=== PATIENT | female | born 1945 | race African-American/Black ===

== ENCOUNTER 2017-08-11 08:34 | Inpatient (IN) | payer OTHER ==
[2017-08-11] MEDS: cloNIDine HCL 0.1 MG TABLET PO (09:36)
[2017-08-11 09:54] LABS: ANION GAP 8 (6-14); BLOOD UREA NITROGEN 11 mg/dL (7-20); BUN/CREATININE RATIO 22 (6-20); CALCIUM 9.2 mg/dL (8.5-10.1); CARBON DIOXIDE 31 mmol/L (21-32); CHLORIDE 104 mmol/L (98-107); CREATININE 0.5 mg/dL (0.6-1.0); GLUCOSE 121 mg/dL (70-99); POTASSIUM 4.3 mmol/L (3.5-5.1); SODIUM 143 mmol/L (136-145)
[2017-08-11 09:58] LABS: ALBUMIN 3.3 g/dL (3.4-5.0); ALBUMIN/GLOBULIN RATIO 0.8 (1.0-1.7); ALK PHOS 84 U/L (46-116); ALT (SGPT) 16 U/L (14-59); AST (SGOT) 12 U/L (15-37); TOTAL BILIRUBIN 0.3 mg/dL (0.2-1.0); TOTAL PROTEIN 7.2 g/dL (6.4-8.2)
[2017-08-11 10:03] LABS: NT-PRO BNP 54 pg/mL (0-124)
[2017-08-11 10:06] LABS: TROPONINI < 0.017 ng/mL (0.000-0.055)
[2017-08-11 10:11] LABS: ADD MAN DIFF? NO
[2017-08-11] MEDS ORDERED: ONDANSETRON PF 4 MG/2 ML VIAL. IV (10:45)
[2017-08-11 10:58] LABS: BASO % 1 % (0-3); EOS % 1 % (0-3); HEMATOCRIT 47.8 % (36.0-47.0); HEMOGLOBIN 16.1 g/dL (12.0-15.5); LYMPH # 2.5 x10^3/uL (1.0-4.8); LYMPH % 44 % (24-48); MEAN CORPUSCULAR HEMOGLOBIN 31 pg (25-35); MEAN CORPUSCULAR HGB CONC 34 g/dL (31-37); MEAN CORPUSCULAR VOLUME 93 fL (79-100); MONO # 0.5 x10^3/uL (0.0-1.1); MONO % 9 % (0-9); NEUT # 2.6 x10^3uL (1.8-7.7); NEUT % 46 % (31-73); PLATELET COUNT 435 x10^3/uL (140-400); RED BLOOD COUNT 5.12 x10^6/uL (3.50-5.40); RED CELL DISTRIBUTION WIDTH 15.2 % (11.5-14.5); WHITE BLOOD COUNT 5.7 x10^3/uL (4.0-11.0)
[2017-08-11] MEDS: ASPIRIN CHEWABLE 81 MG TABLET. PO (11:06)
[2017-08-11] MEDS ORDERED: ACETAMINOPHEN 325 MG TABLET. PO (12:15)
[2017-08-11] MEDS: IPRATRPIUM/ALBUTEROL 0.5/2.5MG 3 ML NEBU. NEB ×3 (12:19→19:30)
[2017-08-11] MEDS: LOSARTAN POTASSIUM 50 MG TABLET. PO (15:00)
[2017-08-11] MEDS: hydroCHLOROthiazide 12.5 MG CAPSULE PO (15:00)
[2017-08-11] MEDS: amLODIPine BESYLATE 10 MG TABLET PO (15:00)
[2017-08-11 17:26] LABS: TROPONINI < 0.017 ng/mL (0.000-0.055)
[2017-08-11] MEDS: CARVEDILOL 12.5 MG TABLET. PO (21:39)
[2017-08-12] LABS: TROPONINI < 0.017 ng/mL (0.000-0.055)
[2017-08-12 05:15] LABS: ADD MAN DIFF? NO
[2017-08-12 05:30] LABS: BASO # 0.1 x10^3/uL (0.0-0.2); BASO % 1 % (0-3); EOS # 0.1 x10^3/uL (0.0-0.7); EOS % 1 % (0-3); HEMATOCRIT 44.2 % (36.0-47.0); HEMOGLOBIN 14.3 g/dL (12.0-15.5); LYMPH # 3.2 x10^3/uL (1.0-4.8); LYMPH % 48 % (24-48); MEAN CORPUSCULAR HEMOGLOBIN 31 pg (25-35); MEAN CORPUSCULAR HGB CONC 32 g/dL (31-37); MEAN CORPUSCULAR VOLUME 94 fL (79-100); MONO # 0.7 x10^3/uL (0.0-1.1); MONO % 10 % (0-9); NEUT # 2.7 x10^3uL (1.8-7.7); NEUT % 40 % (31-73); PLATELET COUNT 411 x10^3/uL (140-400); RED BLOOD COUNT 4.69 x10^6/uL (3.50-5.40); RED CELL DISTRIBUTION WIDTH 15.3 % (11.5-14.5); WHITE BLOOD COUNT 6.7 x10^3/uL (4.0-11.0)
[2017-08-12 05:57] LABS: CHOLESTEROL 126 mg/dL (0-200); HDLC 30 mg/dL (40-60); LDLC 69 mg/dL (0-100); NON-HDL CHOLESTEROL 96 mg/dL (0-129); TRIGLYCERIDES 135 mg/dL (0-150); VLDLC 27 mg/dL (0-40)
[2017-08-12 05:59] LABS: CHOLESTEROL/HDL RATIO 4.2
[2017-08-12 06:24] LABS: ALBUMIN/GLOBULIN RATIO 0.8 (1.0-1.7); ALK PHOS 71 U/L (46-116); ALT (SGPT) 16 U/L (14-59); ANION GAP 8 (6-14); AST (SGOT) 13 U/L (15-37); BLOOD UREA NITROGEN 13 mg/dL (7-20); BUN/CREATININE RATIO 19 (6-20); CALCIUM 8.8 mg/dL (8.5-10.1); CARBON DIOXIDE 33 mmol/L (21-32); CHLORIDE 104 mmol/L (98-107); CREATININE 0.7 mg/dL (0.6-1.0); GFR 100.1; GLUCOSE 54 mg/dL (70-99); POTASSIUM 4.1 mmol/L (3.5-5.1); SODIUM 145 mmol/L (136-145); TOTAL BILIRUBIN 0.3 mg/dL (0.2-1.0)
[2017-08-12 06:33] LABS: THYROID STIM HORMONE (TSH) 1.359 uIU/mL (0.358-3.74)
[2017-08-12] MEDS: IPRATRPIUM/ALBUTEROL 0.5/2.5MG 3 ML NEBU. NEB ×3 (08:05→14:57)
[2017-08-12] MEDS ORDERED: CARVEDILOL 12.5 MG TABLET. PO (09:00)
[2017-08-12] MEDS: LOSARTAN POTASSIUM 50 MG TABLET. PO (09:08)
[2017-08-12] MEDS: hydroCHLOROthiazide 12.5 MG CAPSULE PO (09:09)
[2017-08-12] MEDS: amLODIPine BESYLATE 10 MG TABLET PO (09:09)
[2017-08-12] MEDS: ASPIRIN ENTERIC COATED 81 MG TABLET.DR. PO (09:09)
[2017-08-12] MEDS: CARVEDILOL 12.5 MG TABLET. PO (09:10)
[2017-08-12] MEDS: PANTOPRAZOLE 40 MG TABLET.DR. PO (12:22)
[2017-08-12 20:11] LABS: HEMOGLOBIN A1C 6.2 % (4.8-5.6)
== END 2017-08-12 15:50 | disposition home or self-care (01) | DRG 191 ==
LOC: ER 08:34 → 5 SOUTH 10:00
DX: J44.0 Chronic obstructive pulmonary disease with (acute) lower respiratory infection (principal); I24.9 Acute ischemic heart disease, unspecified; F17.210 Nicotine dependence, cigarettes, uncomplicated; J20.8 Acute bronchitis due to other specified organisms; I12.9 Hypertensive chronic kidney disease with stage 1 through stage 4 chronic kidney disease, or unspecified chronic kidney disease; K21.9 Gastro-esophageal reflux disease without esophagitis; N18.2 Chronic kidney disease, stage 2 (mild); E66.9 Obesity, unspecified; F32.9 Major depressive disorder, single episode, unspecified; M19.90 Unspecified osteoarthritis, unspecified site; Z79.82 Long term (current) use of aspirin; Z81.8 Family history of other mental and behavioral disorders; Z82.0 Family history of epilepsy and other diseases of the nervous system; Z82.49 Family history of ischemic heart disease and other diseases of the circulatory system; Z86.73 Personal history of transient ischemic attack (TIA), and cerebral infarction without residual deficits; Z83.3 Family history of diabetes mellitus; Z90.710 Acquired absence of both cervix and uterus; Z68.32 Body mass index [BMI] 32.0-32.9, adult; Z87.01 Personal history of pneumonia (recurrent)
CPT/HCPCS: 36415; 71045; 80053; 80061; 83036; 83735; 83880; 84443; 84484; 85025; 93005; 93306; 94640; 99285; 99285-25; J7620

== ENCOUNTER 2020-02-15 16:13 | Inpatient (IN) | payer MEDICARE, OTHER ==
[~2020-02-15] VITALS: Ht 149.9 cm; Wt 72.8 kg
[~2020-02-15 16:13] MED LIST: ALBU2.5V8 INH; AMLO10TA8 PO; ASPI-886 PO; CARV25TA2 PO; DOXY-96 PO; LOSA1TAB25 PO; METF500T16 PO; OMEP40CA45 PO; PRED50TA PO
--- NOTE | 2020-02-15 16:31 | PHYS DOC ---
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 Patient reportedly had been cooking in the kitchen at the [facility] [employer] earlier today, when she started to feel dizzy, had slid herself down, reportedly hitting head on a chair on the way down. Patient reports that she felt little bit better after this, however still was feeling ill with a dizziness. EMS upon arrival found patient with blood sugar of 55, had administered some oral glucose, bring patient blood sugar up to 130's, . Also reports patient had one episode of emesis for them, had administered 4 mg of Zofran. Patient reports she does not have a history of diabetes, however reports that she was taking metformin up until approximately 1 month ago when she stopped taking it because she had not been reading about the side effects of it, reports she has not had any side effects herself, and she has not talked to her primary care, Dr. Lawton, about stopping this medication. Patient denies any pain at this time. (JAY LENNON APRN) Review of Systems: Review of Systems: Constitutional: Denies fever or chills. [] Eyes: Denies change in visual acuity. Does report she feels dizzy when her eyes are open [] HENT: Denies nasal congestion or sore throat. [] Respiratory: Denies cough or shortness of breath. [] Cardiovascular: Denies chest pain or edema. [] GI: Denies abdominal pain, bloody stools or diarrhea. Does report nausea, e pisode of vomiting with EMS, as well as on arrival to the ER. [] : Denies dysuria. [] Musculoskeletal: Denies back pain or joint pain. [] Integument: Denies rash. [] Neurologic: Denies headache, focal weakness does complain of dizziness, states that he just feels like it spinning [] Endocrine: Denies polyuria or polydipsia. [] Lymphatic: Denies swollen glands. [] Psychiatric: Denies depression or anxiety. [] (JAY LENNON APRN) Heart Score: Risk Factors: Risk Factors: DM, Current or recent (<one month) smoker, HTN, HLP, family history of CAD, obesity. Risk Scores: Score 0 - 3: 2.5% MACE over next 6 weeks - Discharge Home Score 4 - 6: 20.3% MACE over next 6 weeks - Admit for Clinical Observation Score 7 - 10: 72.7% MACE over next 6 weeks - Early Invasive Strategies (JAY LENNON APRN) Allergies: Allergies: Allergies Coded Allergies Type Severity Reaction Last Updated Verified No Known Drug Allergies 08/11/17 No (JAY LENNON APRN) Physical Exam: PE: Constitutional: Well developed, well nourished, no acute distress, diaphoretic appears mildly uncomfortable [] HENT: Normocephalic, atraumatic, bilateral external ears normal, oropharynx moist, no oral exudates, nose normal. [] Eyes: PERRLA, EOMI, conjunctiva normal, no discharge. Right beating nystagmus noted, no vertical nystagmus noted [] Neck: Normal range of motion, no tenderness, supple, no stridor. [] Cardiovascular:Heart rate regular rhythm, no murmur [] Lungs & Thorax: Bilateral breath sounds clear to auscultation [] Abdomen: Bowel sounds normal, soft, no tenderness, no masses, no pulsatile masses. [] Skin: diaphoretic nonerythematous, no rash noted h. [] Back: No tenderness, no CVA tenderness. [] Extremities: No tenderness, no cyanosis, no clubbing, ROM intact, no edema. [] Neurologic: Alert and oriented X 3, normal motor function, normal sensory function, no focal deficits noted. [] Psychologic: Affect normal, judgement normal, mood normal. [] (JAY LENNON APRN) EKG: EKG: [] (JAY LENNON APRN) Radiology/Procedures: Radiology/Procedures: Technical medicine pulmonary perfusion Scan: Clinical History: Reason: Elevated D Dimer Technique: 5.3 mCi of Tc 99m MAA was administered intravenously and spot views were obtained on the gamma camera for a Nuclear Medicine perfusion examination. Correlation: Same day chest x-ray. Findings: There is subtle decreased perfusion in the peripheral lungs bilaterally without a discrete wedge-shaped defect. This is indeterminate probability for pulmonary embolism based on the modified PIOPED criteria. Impression: Indeterminate probability for pulmonary embolism. Electronically signed by: Poornima Pollock III, MD (02/15/2020 9:35 PM) [facility] DICTATED and SIGNED BY: POORNIMA POLLOCK III, MD DATE: 02/15/202134 [] (JAY LENNON APRN) Course & Med Decision Making: Course & Med Decision Making Pertinent Labs and Imaging studies reviewed. (See chart for details) []Nursing staff unable to obtain IV access sufficient for CTA exam, will switch to perform VQ scan at this time. Discussed findings with patient, with recommendation for admission due to inconclusive PE study, with her syncope, and transient hypoglycemia. Patient agrees to admission at this time, will contact primary care Dr. Lawton. @[id number] Nelson, on-call for Dr. Lawton, agrees to admission. Recommends cardiology consult tomorrow. And admit to Dr. Lawton (JAY LENNON APRN) Dragon Disclaimer: Dragroxy Disclaimer: This electronic medical record was generated, in whole or in part, using a voice recognition dictation system. (JAY LENNON APRN) Departure Departure Impression: Primary Impression: Syncope Qualified Codes: R55 - Syncope and collapse Additional Impressions: Hypoglycemic reaction Elevated d-dimer Disposition: 09 ADMITTED INPATIENT Admitting Physician: Дмитрий Lawton (JAY LENNON APRN) Condition: STABLE Referrals: NO PCP (PCP) Justicifation of Admission Dx: Justifications for Admission: Justification of Admission Dx: N/A (JAY LENNON APRN) Attending Signature Attending Signature I have reviewed the PA/DEMOLITION CRANE OPERATOR's note and plan of care. I was available for consultation as needed during the patient's visit in the emergency department. I agree with the clinical impression, plan, and disposition. (ROMELIA JUDD DO) JAY LENNON APRN Feb 15, 2020 16:31 ROMELIA JUDD DO Feb 16, 2020 02:06
[2020-02-15 16:48] LABS: BASO # 0.1 x10^3/uL (0.0-0.2); BASO % 1 % (0-3); EOS # 0.1 x10^3/uL (0.0-0.7); EOS % 1 % (0-3); HEMATOCRIT 45.5 % (36.0-47.0); HEMOGLOBIN 15.9 g/dL (12.0-15.5); LYMPH # 3.5 x10^3/uL (1.0-4.8); LYMPH % 50 % (24-48); MEAN CORPUSCULAR HEMOGLOBIN 32 pg (25-35); MEAN CORPUSCULAR HGB CONC 35 g/dL (31-37); MEAN CORPUSCULAR VOLUME 92 fL (79-100); MONO # 0.5 x10^3/uL (0.0-1.1); MONO % 8 % (0-9); NEUT # 2.8 x10^3/uL (1.8-7.7); NEUT % 40 % (31-73); PLATELET COUNT 300 x10^3/uL (140-400); RED BLOOD COUNT 4.92 x10^6/uL (3.50-5.40); RED CELL DISTRIBUTION WIDTH 15.6 % (11.5-14.5); WHITE BLOOD COUNT 6.9 x10^3/uL (4.0-11.0)
[2020-02-15 16:57] LABS: PROTHROMBIN TIME PATIENT 12.1 SEC (11.7-14.0)
--- NOTE | 2020-02-15 16:57 | RAD ---
CHEST AP ONLY Clinical Indication: Reason: Altered mental status / Spl. Instructions: / History: Comparison: AP chest, January 18, 2018. Findings: Atherosclerotic and tortuous thoracic aorta. Cardiac size upper limits of normal. Lungs are clear. There is no pneumothorax. No pleural effusion is appreciated. No acute bone abnormality. IMPRESSION: No acute cardiopulmonary process. Electronically signed by: Luis Franz MD (02/15/2020 4:55 PM) [id number]
[2020-02-15] MEDS ORDERED: IV DEXTROSE 5% 500 ML IV ONE (17:00)
[2020-02-15] MEDS ORDERED: IV NORMAL SALINE 1000ML BAG 1,000 ML IV ONE (17:00)
[2020-02-15 17:02] LABS: CALCIUM 8.5 mg/dL (8.5-10.1); CREATININE 0.7 mg/dL (0.6-1.0); GFR 99.2; POTASSIUM 3.3 mmol/L (3.5-5.1)
[2020-02-15 17:04] LABS: BILIRUBIN,URINE NEGATIVE (NEG); CLARITY,URINE CLEAR; COLOR,URINE YELLOW; NITRITE,URINE NEGATIVE (NEG); PH,URINE 5.5 (<5.0-8.0); PROTEIN,URINE NEGATIVE (NEG-TRACE)
[2020-02-15 17:08] LABS: ALBUMIN 3.5 g/dL (3.4-5.0); MAGNESIUM 1.9 mg/dL (1.8-2.4); TOTAL BILIRUBIN 0.2 mg/dL (0.2-1.0); TOTAL PROTEIN 7.1 g/dL (6.4-8.2)
[2020-02-15 17:24] LABS: D-DIMER 0.99 ug/mlFEU (0.00-0.50)
[2020-02-15 17:26] LABS: BACTERIA,URINE MODERATE /HPF (0-FEW); RBC,URINE 0 /HPF (0-2); SQUAMOUS EPITHELIAL CELL,UR FEW /LPF
[2020-02-15 17:39] LABS: BARBITURATES NEG (NEG); BENZODIAZEPINES NEG (NEG); CANNABINOIDS NEG (NEG); COCAINE NEG (NEG); METHADONE NEG (NEG); OPIATES NEG (NEG); PHENCYCLIDINE NEG (NEG)
[2020-02-15 17:44] LABS: AMPHETAMINE/METHAMPHETAMINE NEG (NEG)
[2020-02-15] MEDS ORDERED: METOCLOPRAMIDE HCL 10 MG/2 ML VIAL. IVP ONE (17:45)
[2020-02-15] MEDS ORDERED: MECLIZINE HCL 12.5 MG TABLET. PO ONE (17:45)
--- NOTE | 2020-02-15 17:53 | RAD ---
Examination: CT HEAD WO CONTRAST History: Reason: Altered Mental status / Spl. Instructions: / History: Comparison/Correlation: None Findings: Axial images of the head were obtained without contrast. Ventricles are normal size. No intracranial hemorrhage, midline shift, or mass effect. Cavernous carotid calcifications present. Patchy opacification of ethmoid air cells in the left frontal sinus noted. Bony structures are unremarkable. Globes and optic nerves are unremarkable. Impression: No acute process. Electronically signed by: Victor Manuel Leavitt MD (02/15/2020 5:50 PM) [facility]
[2020-02-15] MEDS ORDERED: IV NORMAL SALINE 500ML BAG 500 ML IV ONE (18:30)
[2020-02-15] MEDS ORDERED: IOHEXOL 350 MG/ML 100 ML VIAL. IV ONE (18:30)
[2020-02-15] MEDS ORDERED: CONTRAST GIVEN. MC PRN (18:45)
--- NOTE | 2020-02-15 21:38 | RAD ---
Technical medicine pulmonary perfusion Scan: Clinical History: Reason: Elevated D Dimer Technique: 5.3 mCi of Tc 99m MAA was administered intravenously and spot views were obtained on the gamma camera for a Nuclear Medicine perfusion examination. Correlation: Same day chest x-ray. Findings: There is subtle decreased perfusion in the peripheral lungs bilaterally without a discrete wedge-shaped defect. This is indeterminate probability for pulmonary embolism based on the modified PIOPED criteria. Impression: Indeterminate probability for pulmonary embolism. Electronically signed by: Farhad Erazo III, MD (02/15/2020 9:35 PM) [facility]
[2020-02-15] MEDS ORDERED: ONDANSETRON PF 4 MG/2 ML VIAL. IV PRN (23:30)
[2020-02-16] VITALS (7 sets, daily range): BP systolic 108–173; BP diastolic 53–78
[2020-02-16] MEDS: IV NORMAL SALINE 1000ML BAG 1,000 ML IV SCH ×2 (01:25→09:30)
[2020-02-16 07:48] LABS: BASO % 1 % (0-3); EOS # 0.1 x10^3/uL (0.0-0.7); EOS % 1 % (0-3); HEMATOCRIT 43.4 % (36.0-47.0); HEMOGLOBIN 14.7 g/dL (12.0-15.5); LYMPH # 2.7 x10^3/uL (1.0-4.8); LYMPH % 45 % (24-48); MEAN CORPUSCULAR HEMOGLOBIN 32 pg (25-35); MEAN CORPUSCULAR HGB CONC 34 g/dL (31-37); MEAN CORPUSCULAR VOLUME 93 fL (79-100); MONO # 0.4 x10^3/uL (0.0-1.1); MONO % 7 % (0-9); NEUT # 2.8 x10^3/uL (1.8-7.7); NEUT % 46 % (31-73); PLATELET COUNT 221 x10^3/uL (140-400); RED BLOOD COUNT 4.65 x10^6/uL (3.50-5.40); RED CELL DISTRIBUTION WIDTH 15.6 % (11.5-14.5)
[2020-02-16 08:09] LABS: ALBUMIN/GLOBULIN RATIO 1.1 (1.0-1.7); CREATININE 0.5 mg/dL (0.6-1.0); GFR 146.3; POTASSIUM 3.5 mmol/L (3.5-5.1); TOTAL BILIRUBIN 0.3 mg/dL (0.2-1.0); TOTAL PROTEIN 5.8 g/dL (6.4-8.2)
[2020-02-16] MEDS ORDERED: ALBUTEROL SULFATE 2.5 MG/3 ML NEBU. INH PRN (09:45)
--- NOTE | 2020-02-16 09:47 | PDOC ---
Provider Note Provider Note Pt seen .H&P dictated.#[id number]. Justicifation of Admission Dx: Justifications for Admission: Justification of Admission Dx: N/A HETAL RODRIGUEZ MD Feb 16, 2020 09:47
[2020-02-16] MEDS ORDERED: POTASSIUM CHLORIDE 20 MEQ TABLET.ER. PO ONE (10:00)
[2020-02-16] MEDS ORDERED: hydroCHLOROthiazide 12.5 MG CAPSULE PO SCH (10:00)
[2020-02-16] MEDS ORDERED: amLODIPine BESYLATE 10 MG TABLET PO SCH (10:00)
[2020-02-16] MEDS ORDERED: ASPIRIN ENTERIC COATED 81 MG TABLET.DR. PO SCH (10:00)
[2020-02-16] MEDS ORDERED: LOSARTAN POTASSIUM 50 MG TABLET. PO SCH (10:00)
[2020-02-16] MEDS ORDERED: CARVEDILOL 12.5 MG TABLET. PO SCH (11:00)
--- NOTE | 2020-02-16 11:34 | PDOC2 ---
CONSULT Date of Consult Date of Consult DATE: 02/16/20 TIME: 11:28 Reason for Consult Reason for Consult: Syncope Referring Physician Referring Physician: Dr. Nelson Identification/Chief Complaint Chief Complaint Syncope Source Source: Chart review, Patient History of Present Illness Reason for Visit: 75-year-old female apparently was cooking at the kitchen of [employer] when she felt dizzy and passed out hitting her head on a chair. EMS apparently found the patient had blood sugar of 55 and normal blood pressure. She is presently feeling better and denied any dizziness. She denied any other episodes of syncope or near syncope in the past. She also denied any chest pain, orthopnea/PND or palpitations. Past Medical History Cardiovascular: HTN Pulmonary: Bronchitis, Pneumonia GI: GERD Heme/Onc: No pertinent hx Hepatobiliary: No pertinent hx Psych: Depression Musculoskeletal: Osteoarthritis Rheumatologic: No pertinent hx Infectious disease: No pertinent hx Renal/: No pertinent hx Endocrine: No pertinent hx Past Surgical History Past Surgical History: Hysterectomy Family History Family History: Alzheimer's Disease, Diabetes, Hypertension Social History ALCOHOL: none Drugs: None Lives: with Family Current Problem List Problem List Problems Medical Problems: (1) Elevated d-dimer Status: Acute (2) Hypoglycemic reaction Status: Acute (3) Syncope Status: Acute Current Medications Current Medications Current Medications Dextrose 500 ml @ 500 mls/hr 1X ONCE IV ; Start 02/15/20 at 17:00; Stop 02/15/20 at 18:19; Status DC Sodium Chloride 1,000 ml @ 1,000 mls/hr 1X ONCE IV Last administered on 02/15/20at 16:40; Start 02/15/20 at 17:00; Stop 02/15/20 at 17:59; Status DC Metoclopramide HCl (Reglan Vial) 10 mg 1X ONCE IVP Last administered on 02/15/20at 19:53; Start 02/15/20 at 17:45; Stop 02/15/20 at 17:46; Status DC Meclizine HCl (Antivert) 25 mg 1X ONCE PO Last administered on 02/15/20at 19:53; Start 02/15/20 at 17:45; Stop 02/15/20 at 17:46; Status DC Sodium Chloride 500 ml @ 500 mls/hr 1X ONCE IV Last administered on 02/15/20at 19:54; Start 02/15/20 at 18:30; Stop 02/15/20 at 19:29; Status DC Iohexol (Omnipaque 350 Mg/ml) 100 ml 1X ONCE IV ; Start 02/15/20 at 18:30; Stop 02/15/20 at 18:31; Status DC Info (CONTRAST GIVEN -- Rx MONITORING) 1 each PRN DAILY PRN MC SEE COMMENTS; Start 02/15/20 at 18:45; Stop 02/17/20 at 18:44 Ondansetron HCl (Zofran) 4 mg PRN Q8HRS PRN IV NAUSEA/VOMITING; Start 02/15/20 at 23:30; Stop 02/16/20 at 23:29 Sodium Chloride 1,000 ml @ 100 mls/hr Q10H IV Last administered on 02/16/20at 01:25; Start 02/15/20 at 23:30; Stop 02/16/20 at 23:29 Enoxaparin Sodium (Lovenox 80mg Syringe) 70 mg 1X ONCE SQ Last administered on 02/16/20at 01:24; Start 02/15/20 at 23:45; Stop 02/15/20 at 23:52; Status DC Albuterol Sulfate (Ventolin Neb Soln) 2.5 mg PRN Q6HRS PRN INH SHORTNESS OF BREATH; Start 02/16/20 at 09:45 Amlodipine Besylate (Norvasc) 10 mg DAILY PO ; Start 02/16/20 at 10:00 Aspirin (Ecotrin) 81 mg DAILYWBKFT PO ; Start 02/16/20 at 10:00 Metformin HCl (Glucophage) 500 mg BIDWMEALS PO ; Start 02/17/20 at 17:00 Carvedilol (Coreg) 25 mg BIDWMEALS PO ; Start 02/16/20 at 11:00 Losartan Potassium (Cozaar) 100 mg DAILY PO ; Start 02/16/20 at 10:00 Hydrochlorothiazide (Microzide) 12.5 mg DAILY PO ; Start 02/16/20 at 10:00 Potassium Chloride (Klor-Con) 40 meq 1X ONCE PO ; Start 02/16/20 at 10:00; Stop 02/16/20 at 10:01; Status DC Active Scripts Active Aspirin Ec (Aspirin) 81 Mg Tablet.dr 81 Mg PO DAILYWBKFT Proair Hfa Inhaler (Albuterol Sulfate) 8.5 Gm Hfa.aer.ad 2 Puff INH PRN Q6HRS PRN Reported Metformin Hcl 500 Mg Tablet 500 Mg PO BIDWMEALS Losartan-Hctz 100-12.5 Mg Tab (Losartan/Hydrochlorothiazide) 1 Each Tablet 1 Tab PO DAILY Amlodipine Besylate 10 Mg Tablet 10 Mg PO DAILY Carvedilol 25 Mg Tablet 1 Tab PO BID Allergies Allergies: Coded Allergies: No Known Drug Allergies (Unverified , 08/11/17) ROS PSYCHOLOGICAL ROS: No: Hallucinations Eyes: No Loss of vision HEENT: No: Epistaxis Respiratory: No: Hemoptysis, Shortness of breath Cardiovascular: No Chest Pain Gastrointestinal: Yes Vomiting Genitourinary: No Hematuria Neurological: No Seizures Skin: No Rash Physical Exam General: Alert, Oriented X3 HEENT: Atraumatic Lungs: Clear to auscultation Heart: Regular rate Abdomen: Soft Extremities: No edema Neuro: Normal speech Psych/Mental Status: Mood NL Vitals VITALS Vital Signs Date Time Temp Pulse Resp B/P (MAP) Pulse Ox O2 Delivery O2 Flow Rate FiO2 02/16/20 11:00 85 164/74 (104) 02/16/20 10:58 98.1 16 94 Room Air 98.1 Labs Labs Laboratory Tests Test 02/15/20 16:20 02/15/20 16:30 02/15/20 16:38 02/15/20 20:00 Glucose (Fingerstick) 137 mg/dL (70-99) White Blood Count 6.9 x10^3/uL (4.0-11.0) Red Blood Count 4.92 x10^6/uL (3.50-5.40) Hemoglobin 15.9 g/dL (12.0-15.5) Hematocrit 45.5 % (36.0-47.0) Mean Corpuscular Volume 92 fL (79-100) Mean Corpuscular Hemoglobin 32 pg (25-35) Mean Corpuscular Hemoglobin Concent 35 g/dL (31-37) Red Cell Distribution Width 15.6 % (11.5-14.5) Platelet Count 300 x10^3/uL (140-400) Neutrophils (%) (Auto) 40 % (31-73) Lymphocytes (%) (Auto) 50 % (24-48) Monocytes (%) (Auto) 8 % (0-9) Eosinophils (%) (Auto) 1 % (0-3) Basophils (%) (Auto) 1 % (0-3) Neutrophils # (Auto) 2.8 x10^3/uL (1.8-7.7) Lymphocytes # (Auto) 3.5 x10^3/uL (1.0-4.8) Monocytes # (Auto) 0.5 x10^3/uL (0.0-1.1) Eosinophils # (Auto) 0.1 x10^3/uL (0.0-0.7) Basophils # (Auto) 0.1 x10^3/uL (0.0-0.2) Prothrombin Time 12.1 SEC (11.7-14.0) Prothromb Time International Ratio 0.9 (0.8-1.1) D-Dimer (Gavi) 0.99 ug/mlFEU (0.00-0.50) Sodium Level 142 mmol/L (136-145) Potassium Level 3.3 mmol/L (3.5-5.1) Chloride Level 104 mmol/L (98-107) Carbon Dioxide Level 31 mmol/L (21-32) Anion Gap 7 (6-14) Blood Urea Nitrogen 15 mg/dL (7-20) Creatinine 0.7 mg/dL (0.6-1.0) Estimated GFR (Cockcroft-Gault) 99.2 BUN/Creatinine Ratio 21 (6-20) Glucose Level 143 mg/dL (70-99) Lactic Acid Level 1.2 mmol/L (0.4-2.0) Calcium Level 8.5 mg/dL (8.5-10.1) Magnesium Level 1.9 mg/dL (1.8-2.4) Total Bilirubin 0.2 mg/dL (0.2-1.0) Aspartate Amino Transf (AST/SGOT) 15 U/L (15-37) Alanine Aminotransferase (ALT/SGPT) 15 U/L (14-59) Alkaline Phosphatase 81 U/L (46-116) Troponin I Quantitative < 0.017 ng/mL (0.000-0.055) < 0.017 ng/mL (0.000-0.055) Total Protein 7.1 g/dL (6.4-8.2) Albumin 3.5 g/dL (3.4-5.0) Albumin/Globulin Ratio 1.0 (1.0-1.7) Thyroid Stimulating Hormone (TSH) 2.367 uIU/mL (0.358-3.74) Urine Collection Type U cath Urine Color Yellow Urine Clarity Clear Urine pH 5.5 (<5.0-8.0) Urine Specific [place] 1.025 (1.000-1.030) Urine Protein Negative mg/dL (NEG-TRACE) Urine Glucose (UA) Negative mg/dL (NEG) Urine Ketones (Stick) Negative mg/dL (NEG) Urine Blood Negative (NEG) Urine Nitrite Negative (NEG) Urine Bilirubin Negative (NEG) Urine Urobilinogen Dipstick 1.0 mg/dL (0.2 mg/dL) Urine Leukocyte Esterase Negative (NEG) Urine RBC 0 /HPF (0-2) Urine WBC 1-4 /HPF (0-4) Urine Squamous Epithelial Cells Few /LPF Urine Bacteria Moderate /HPF (0-FEW) Urine Mucus Mod /LPF Urine Opiates Screen Neg (NEG) Urine Methadone Screen Neg (NEG) Urine Barbiturates Neg (NEG) Urine Phencyclidine Screen Neg (NEG) Urine Amphetamine/Methamphetamine Neg (NEG) Urine Benzodiazepines Screen Neg (NEG) Urine Cocaine Screen Neg (NEG) Urine Cannabinoids Screen Neg (NEG) Urine Ethyl Alcohol Neg (NEG) Test 02/16/20 02:00 02/16/20 07:25 02/16/20 08:02 Troponin I Quantitative < 0.017 ng/mL (0.000-0.055) < 0.017 ng/mL (0.000-0.055) White Blood Count 6.0 x10^3/uL (4.0-11.0) Red Blood Count 4.65 x10^6/uL (3.50-5.40) Hemoglobin 14.7 g/dL (12.0-15.5) Hematocrit 43.4 % (36.0-47.0) Mean Corpuscular Volume 93 fL (79-100) Mean Corpuscular Hemoglobin 32 pg (25-35) Mean Corpuscular Hemoglobin Concent 34 g/dL (31-37) Red Cell Distribution Width 15.6 % (11.5-14.5) Platelet Count 221 x10^3/uL (140-400) Neutrophils (%) (Auto) 46 % (31-73) Lymphocytes (%) (Auto) 45 % (24-48) Monocytes (%) (Auto) 7 % (0-9) Eosinophils (%) (Auto) 1 % (0-3) Basophils (%) (Auto) 1 % (0-3) Neutrophils # (Auto) 2.8 x10^3/uL (1.8-7.7) Lymphocytes # (Auto) 2.7 x10^3/uL (1.0-4.8) Monocytes # (Auto) 0.4 x10^3/uL (0.0-1.1) Eosinophils # (Auto) 0.1 x10^3/uL (0.0-0.7) Basophils # (Auto) 0.0 x10^3/uL (0.0-0.2) Sodium Level 143 mmol/L (136-145) Potassium Level 3.5 mmol/L (3.5-5.1) Chloride Level 106 mmol/L (98-107) Carbon Dioxide Level 29 mmol/L (21-32) Anion Gap 8 (6-14) Blood Urea Nitrogen 7 mg/dL (7-20) Creatinine 0.5 mg/dL (0.6-1.0) Estimated GFR (Cockcroft-Gault) 146.3 BUN/Creatinine Ratio 14 (6-20) Glucose Level 100 mg/dL (70-99) Calcium Level 8.0 mg/dL (8.5-10.1) Total Bilirubin 0.3 mg/dL (0.2-1.0) Aspartate Amino Transf (AST/SGOT) 14 U/L (15-37) Alanine Aminotransferase (ALT/SGPT) 15 U/L (14-59) Alkaline Phosphatase 74 U/L (46-116) Total Protein 5.8 g/dL (6.4-8.2) Albumin 3.0 g/dL (3.4-5.0) Albumin/Globulin Ratio 1.1 (1.0-1.7) Glucose (Fingerstick) 107 mg/dL (70-99) Laboratory Tests Test 02/15/20 16:20 02/15/20 16:30 02/15/20 16:38 02/15/20 20:00 Glucose (Fingerstick) 137 mg/dL (70-99) White Blood Count 6.9 x10^3/uL (4.0-11.0) Red Blood Count 4.92 x10^6/uL (3.50-5.40) Hemoglobin 15.9 g/dL (12.0-15.5) Hematocrit 45.5 % (36.0-47.0) Mean Corpuscular Volume 92 fL (79-100) Mean Corpuscular Hemoglobin 32 pg (25-35) Mean Corpuscular Hemoglobin Concent 35 g/dL (31-37) Red Cell Distribution Width 15.6 % (11.5-14.5) Platelet Count 300 x10^3/uL (140-400) Neutrophils (%) (Auto) 40 % (31-73) Lymphocytes (%) (Auto) 50 % (24-48) Monocytes (%) (Auto) 8 % (0-9) Eosinophils (%) (Auto) 1 % (0-3) Basophils (%) (Auto) 1 % (0-3) Neutrophils # (Auto) 2.8 x10^3/uL (1.8-7.7) Lymphocytes # (Auto) 3.5 x10^3/uL (1.0-4.8) Monocytes # (Auto) 0.5 x10^3/uL (0.0-1.1) Eosinophils # (Auto) 0.1 x10^3/uL (0.0-0.7) Basophils # (Auto) 0.1 x10^3/uL (0.0-0.2) Prothrombin Time 12.1 SEC (11.7-14.0) Prothromb Time International Ratio 0.9 (0.8-1.1) D-Dimer (Gavi) 0.99 ug/mlFEU (0.00-0.50) Sodium Level 142 mmol/L (136-145) Potassium Level 3.3 mmol/L (3.5-5.1) Chloride Level 104 mmol/L (98-107) Carbon Dioxide Level 31 mmol/L (21-32) Anion Gap 7 (6-14) Blood Urea Nitrogen 15 mg/dL (7-20) Creatinine 0.7 mg/dL (0.6-1.0) Estimated GFR (Cockcroft-Gault) 99.2 BUN/Creatinine Ratio 21 (6-20) Glucose Level 143 mg/dL (70-99) Lactic Acid Level 1.2 mmol/L (0.4-2.0) Calcium Level 8.5 mg/dL (8.5-10.1) Magnesium Level 1.9 mg/dL (1.8-2.4) Total Bilirubin 0.2 mg/dL (0.2-1.0) Aspartate Amino Transf (AST/SGOT) 15 U/L (15-37) Alanine Aminotransferase (ALT/SGPT) 15 U/L (14-59) Alkaline Phosphatase 81 U/L (46-116) Troponin I Quantitative < 0.017 ng/mL (0.000-0.055) < 0.017 ng/mL (0.000-0.055) Total Protein 7.1 g/dL (6.4-8.2) Albumin 3.5 g/dL (3.4-5.0) Albumin/Globulin Ratio 1.0 (1.0-1.7) Thyroid Stimulating Hormone (TSH) 2.367 uIU/mL (0.358-3.74) Urine Collection Type U cath Urine Color Yellow Urine Clarity Clear Urine pH 5.5 (<5.0-8.0) Urine Specific [place] 1.025 (1.000-1.030) Urine Protein Negative mg/dL (NEG-TRACE) Urine Glucose (UA) Negative mg/dL (NEG) Urine Ketones (Stick) Negative mg/dL (NEG) Urine Blood Negative (NEG) Urine Nitrite Negative (NEG) Urine Bilirubin Negative (NEG) Urine Urobilinogen Dipstick 1.0 mg/dL (0.2 mg/dL) Urine Leukocyte Esterase Negative (NEG) Urine RBC 0 /HPF (0-2) Urine WBC 1-4 /HPF (0-4) Urine Squamous Epithelial Cells Few /LPF Urine Bacteria Moderate /HPF (0-FEW) Urine Mucus Mod /LPF Urine Opiates Screen Neg (NEG) Urine Methadone Screen Neg (NEG) Urine Barbiturates Neg (NEG) Urine Phencyclidine Screen Neg (NEG) Urine Amphetamine/Methamphetamine Neg (NEG) Urine Benzodiazepines Screen Neg (NEG) Urine Cocaine Screen Neg (NEG) Urine Cannabinoids Screen Neg (NEG) Urine Ethyl Alcohol Neg (NEG) Test 02/16/20 02:00 02/16/20 07:25 02/16/20 08:02 Troponin I Quantitative < 0.017 ng/mL (0.000-0.055) < 0.017 ng/mL (0.000-0.055) White Blood Count 6.0 x10^3/uL (4.0-11.0) Red Blood Count 4.65 x10^6/uL (3.50-5.40) Hemoglobin 14.7 g/dL (12.0-15.5) Hematocrit 43.4 % (36.0-47.0) Mean Corpuscular Volume 93 fL (79-100) Mean Corpuscular Hemoglobin 32 pg (25-35) Mean Corpuscular Hemoglobin Concent 34 g/dL (31-37) Red Cell Distribution Width 15.6 % (11.5-14.5) Platelet Count 221 x10^3/uL (140-400) Neutrophils (%) (Auto) 46 % (31-73) Lymphocytes (%) (Auto) 45 % (24-48) Monocytes (%) (Auto) 7 % (0-9) Eosinophils (%) (Auto) 1 % (0-3) Basophils (%) (Auto) 1 % (0-3) Neutrophils # (Auto) 2.8 x10^3/uL (1.8-7.7) Lymphocytes # (Auto) 2.7 x10^3/uL (1.0-4.8) Monocytes # (Auto) 0.4 x10^3/uL (0.0-1.1) Eosinophils # (Auto) 0.1 x10^3/uL (0.0-0.7) Basophils # (Auto) 0.0 x10^3/uL (0.0-0.2) Sodium Level 143 mmol/L (136-145) Potassium Level 3.5 mmol/L (3.5-5.1) Chloride Level 106 mmol/L (98-107) Carbon Dioxide Level 29 mmol/L (21-32) Anion Gap 8 (6-14) Blood Urea Nitrogen 7 mg/dL (7-20) Creatinine 0.5 mg/dL (0.6-1.0) Estimated GFR (Cockcroft-Gault) 146.3 BUN/Creatinine Ratio 14 (6-20) Glucose Level 100 mg/dL (70-99) Calcium Level 8.0 mg/dL (8.5-10.1) Total Bilirubin 0.3 mg/dL (0.2-1.0) Aspartate Amino Transf (AST/SGOT) 14 U/L (15-37) Alanine Aminotransferase (ALT/SGPT) 15 U/L (14-59) Alkaline Phosphatase 74 U/L (46-116) Total Protein 5.8 g/dL (6.4-8.2) Albumin 3.0 g/dL (3.4-5.0) Albumin/Globulin Ratio 1.1 (1.0-1.7) Glucose (Fingerstick) 107 mg/dL (70-99) Assessment/Plan Assessment/Plan 1. Syncope, most probably secondary to hypoglycemia but vasovagal etiology cannot be ruled out. Telemetry did not show any significant arrhythmias. Cardiac enzymes negative. Plan for 2D echo and event monitor as an outpatient. 2. Elevated d-dimer with indeterminate VQ scan. Defer further work-up to primary team. 3. Accelerated hypertension: Resume home medications and titrate for better control 4. DM2 with hypoglycemia: Per IM Thank you for your consultation CHRISSIE CADENA MD Feb 16, 2020 11:33
--- NOTE | 2020-02-16 13:08 | NUR ---
Pt was discharged home with self care, no new medications for pt. she was told to call the Cardiology office on Tuesday to schedule her outpt ultrasounds. she was walked out to the ED exit by sister and SOCIAL [employer]ET[employer] ANALYST. Alexander Ireland RN
--- NOTE | 2020-02-17 10:05 | HP ---
ADMIT DATE: 02/15/2020 MEDICAL HISTORY AND PHYSICAL AND DISCHARGE SUMMARY PATIENT LOCATION: 206. ATTENDING PHYSICIAN: Pam Lawton MD PRIMARY CARE PHYSICIAN: Mattie Rodriguez MD REASON FOR ADMISSION TO THE HOSPITAL: Near-syncope. HISTORY OF PRESENT ILLNESS: The patient is a 75-year-old female, patient of Dr. Pam Lawton. 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 She was feeling fine. Around 3:30, she became lightheaded and she felt dizzy. She did not pass out, but she lowered herself and was brought to the hospital. She did not lose consciousness. Denies any chest pain, shortness of breath at that time. The patient denies any other problems. She says she has been doing relatively well. Her blood sugar was slightly low at that time 55 and she states she ate her breakfast and lunch. PAST MEDICAL HISTORY: History of diabetes, hypertension. PAST SURGICAL HISTORY: Hysterectomy. ALLERGIES: No known drug allergies. MEDICATIONS AT HOME: The patient is on albuterol 2 puffs 4 times daily, amlodipine 10 mg daily, aspirin 81 mg daily, Coreg 25 mg twice a day, losartan 100/12.5 daily, metformin 500 mg twice a day. PERSONAL HISTORY: She is a former smoker. 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 REVIEW OF SYMPTOMS: Denies any chest pain, shortness of breath. She feels better. She wants to go home. Her family is leaving out of town. She wants to be there. PHYSICAL EXAMINATION: GENERAL: Pleasant, not in any distress. VITAL SIGNS: At the time of admission shows temperature 97, pulse 66, respirations 18, blood pressure 145/67, 96 on room air. HEENT: Head is atraumatic. Pupils are equal. Oral cavity: No congestion. NECK: Supple. Thyroid not enlarged. JVD not elevated. CHEST: Symmetrical. CARDIOVASCULAR: S1, S2. LUNGS: Clear. ABDOMEN: Soft, bowel sounds present, no mass palpable. EXTERNAL GENITALIA: No Arreola. RECTAL: Deferred. EXTREMITIES: No calf tenderness, no edema. Pulses 1+. NEUROLOGIC: Moving all extremities. No focal deficits noted. LABORATORY DATA: Shows a white count of 6, hemoglobin 16, platelets 300. INR 0.9. D-dimer 0.9. Electrolytes show sodium 143, potassium 3.5, chloride 106, bicarbonate 29, BUN 7, creatinine 0.5, glucose 104. LFTs normal. Troponin was negative. Lactic acid was normal. TSH was normal. The patient had a CT head, it was negative. Chest x-ray was negative. Had a perfusion scan, intermediate for PE. FINAL IMPRESSION: 1. Near-syncope. 2. Hypertension. 3. Diabetes. 4. Possible vasovagal syncope. PLAN: At this time, was admitted to the hospital. EKG, serial cardiac enzymes. The patient is going to get a carotid Doppler. 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 The patient's blood sugar has been stable and metformin unlikely to cause hypoglycemia. MATTIE RODRIGUEZ MD DR: DARRYL/lina JOB#: [id number] / [id number] PAM Ro MD
[2020-02-17] MEDS ORDERED: metFORMIN 500 MG TABLET PO SCH (17:00)
--- NOTE | 2020-02-18 15:47 | EKG ---
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
== END 2020-02-16 16:16 | disposition home or self-care (01) | DRG 639 ==
LOC: ER 16:13 → 2 NORTH 23:21
PROVIDERS: ADMIT Internal Medicine; ATTEND Internal Medicine
DX: E11.649 Type 2 diabetes mellitus with hypoglycemia without coma (principal); R55 Syncope and collapse; F32.9 Major depressive disorder, single episode, unspecified; K21.9 Gastro-esophageal reflux disease without esophagitis; M19.90 Unspecified osteoarthritis, unspecified site; I10 Essential (primary) hypertension; Z90.711 Acquired absence of uterus with remaining cervical stump; Z87.891 Personal history of nicotine dependence; Z82.0 Family history of epilepsy and other diseases of the nervous system; Z83.3 Family history of diabetes mellitus; Z82.49 Family history of ischemic heart disease and other diseases of the circulatory system
CPT/HCPCS: 36415; 70450; 71045; 78580; 80053; 80307; 81001; 82962; 83605; 83735; 84443; 84484; 85025; 85379; 85610; 87086; 93005; 96361; 96374; 99406; A9540; J1650; J2765; J7030; J7040; 99285-25; G0378; J8597

== ENCOUNTER → 2020-03-24 | Outpatient (CLI) | payer OTHER ==
[2020-02-16 12:24] VITALS: BP 173/71
--- NOTE | 2020-03-24 12:02 | CARD ---
MR#: [id number] Date of Study: 03/24/2020 Ordering Physician: CHRISSIE CADENA, Referring Physician: CHRISSIE CADENA Tech: Cely Pompa RDCS APPROVED REPORT EXAM: Two-dimensional and M-mode echocardiogram with Doppler and color Doppler. Other Information Quality : Good INDICATION Hypertension/HCVD Syncope 2D DIMENSIONS RVDd3.1 (2.9-3.5cm)Left Atrium(2D)3.2 (1.6-4.0cm) IVSd1.2 (0.7-1.1cm)Aortic Root(2D)2.7 (2.0-3.7cm) LVDd4.5 (3.9-5.9cm)LVOT Diameter1.9 (1.8-2.4cm) PWd1.2 (0.7-1.1cm)LVDs2.1 (2.5-4.0cm) FS (%) 30.0 %SV41.0 ml LVEF(%)60.0 (>50%) Aortic Valve AoV Peak Neeraj.122.9cm/sAoV VTI24.6cm AO Peak GR.6.0mmHgLVOT Peak Neeraj.103.5cm/s AO Mean GR.3mmHgAVA (VMAX)2.28cm2 JOSEPHINE (VTI)2.20cm2 Mitral Valve MV E Rmlayiwv59.2cm/sMV DECEL [id number] MV A Ztjknypx08.3cm/sE/A Ratio0.7 Pulmonary Vein S1 Gkadgnal12.6cm/sD2 Ohgdlagd42.7cm/s PVa [id number] LEFT VENTRICLE The left ventricle is normal size. There is mild concentric left ventricular hypertrophy. The left ve ntricular systolic function is normal and the ejection fraction is within normal range. The Ejection Fraction is 55-60%. There is normal LV segmental wall motion. Transmitral Doppler flow pattern is Gra de I-abnormal relaxation pattern. RIGHT VENTRICLE The right ventricle is normal size. The right ventricular systolic function is normal. ATRIA The left atrium size is normal. The right atrium size is normal. The interatrial septum is intact wit h no evidence for an atrial septal defect or patent foramen ovale as noted on 2-D or Doppler imaging. AORTIC VALVE The aortic valve is calcified but opens well. Doppler and Color Flow revealed no significant aortic r egurgitation. There is no significant aortic valvular stenosis. MITRAL VALVE The mitral valve is calcified but opens well. There is no evidence of mitral valve prolapse. There is no mitral valve stenosis. Doppler and Color Flow revealed no mitral valve regurgitation noted. TRICUSPID VALVE The tricuspid valve is normal in structure and function. Doppler and Color Flow revealed no tricuspid valve regurgitation noted. There is no tricuspid valve stenosis. PULMONIC VALVE The pulmonic valve is not well visualized. Doppler and Color Flow revealed mild pulmonic valvular reg urgitation. There is no pulmonic valvular stenosis. GREAT VESSELS The aortic root is normal in size. The ascending aorta is normal in size. The IVC is normal in size a nd collapses >50% with inspiration. PERICARDIAL EFFUSION There is no evidence of significant pericardial effusion. Critical Notification Critical Value: No <Conclusion> The left ventricle is normal size. The left ventricular systolic function is normal and the ejection fraction is within normal range. The Ejection Fraction is 55-60%. There is mild concentric left ventricular hypertrophy. Doppler and Color Flow revealed no significant aortic regurgitation. There is no significant aortic valvular stenosis. Doppler and Color Flow revealed no mitral valve regurgitation noted. Doppler and Color Flow revealed no tricuspid valve regurgitation noted. Doppler and Color Flow revealed mild pulmonic valvular regurgitation. Signed by : Jermain Flores MD Electronically Approved : 03/24/2020 12:02:16
== END | disposition home or self-care (01) ==
LOC: ECHO 09:22
PROVIDERS: ATTEND Internal Medicine Cardiovascular Disease
DX: I08.8 Other rheumatic multiple valve diseases (principal); I11.9 Hypertensive heart disease without heart failure
CPT/HCPCS: 93306